=== PATIENT | male | born 1990 | race Caucasian/White ===

== ENCOUNTER 2017-08-30 13:03 | Emergency (ER) | payer BC ==
[2017-08-30 14:04] VITALS: BP 144/78
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
--- NOTE | 2017-08-30 16:12 | RAD ---
Indication: Images acquired for comparison to the contralateral clavicle and upper ribs Comparison: Same day images of the right clavicle were obtained Technique: AP and cephalad oblique views LEFT clavicle. Report: The visualized bones are intact and appropriately aligned. The left acromioclavicular joint measures 5 mm in width. Relative to the right side the distal left clavicle is positioned more inferiorly relative to the acromion. Left upper ribs are normal in appearance and similar in appearance to the contralateral side. IMPRESSION: Normal exam as described.
== END 2017-08-30 16:44 | disposition home or self-care (01) ==
LOC: UCEAST 13:03
DX: S46.811A Strain of other muscles, fascia and tendons at shoulder and upper arm level, right arm, initial encounter (principal); V86.56XA Driver of dirt bike or motor/cross bike injured in nontraffic accident, initial encounter; Y93.89 Activity, other specified; Y92.9 Unspecified place or not applicable; Z83.3 Family history of diabetes mellitus; F17.220 Nicotine dependence, chewing tobacco, uncomplicated
CPT/HCPCS: 71045; 99212; G0463